=== PATIENT | male | born 1945 | race Caucasian/White ===

== ENCOUNTER 2018-09-19 19:30 | Outpatient (CLI) | payer MEDICARE, OTHER | END 2018-09-19 19:31 | disposition home or self-care (01) | LOC: SLEEPLAB 19:30 | PROVIDERS: ATTEND Internal Medicine | DX: G47.33 Obstructive sleep apnea (adult) (pediatric) (principal); R53.83 Other fatigue; R51 Headache; I11.0 Hypertensive heart disease with heart failure; I50.9 Heart failure, unspecified; R35.1 Nocturia; R06.83 Snoring; J44.9 Chronic obstructive pulmonary disease, unspecified; I48.91 Unspecified atrial fibrillation | CPT/HCPCS: 95811 ==

== ENCOUNTER 2020-10-16 19:20 | Inpatient (IN) | payer MEDICARE, BC, OTHER ==
[2020-10-16] MEDS ORDERED: Dexamethasone 10 MG/ML VIAL ONE (19:51)
[2020-10-16 20:17] LABS: ALT (SGPT) 16 U/L (8-55); AST (SGOT) 23 U/L (5-34); Albumin 3.5 g/dL (3.4-4.8); Alkaline Phosphatase 71 U/L (40-110); Anion Gap 12 mmol/L (10-20); BUN (Urea Nitrogen) 30 mg/dL (8.4-25.7); Bilirubin, Total 0.3 mg/dL (0.2-1.2); CRP (Inflammatory) 6.47 mg/dL (= or < 0.5); Calc. Creatinine Clearance 0 mL/min (70-130); Calcium 8.9 mg/dL (7.8-10.44); Carbon Dioxide 22 mmol/L (23-31); Chloride 104 mmol/L (98-107); Globulin 2.8 g/dL (2.4-3.5); Glucose 111 mg/dL (83-110); Potassium 4.2 mmol/L (3.5-5.1); Protein, Total 6.3 g/dL (5.8-8.1); Sodium 134 mmol/L (136-145)
[2020-10-16 20:20] LABS: #Lymphocytes 0.7 thou/uL (1.20-3.40); #Monocytes 0.7 thou/uL (0.11-0.59); #Neutrophils 4.9 thou/uL (1.40-6.50); %Basophils 0.2 % (0.0-1.0); %Eosinophils 0.4 % (0.0-10.0); %Lymphocytes 10.4 % (21.0-51.0); %Monocytes 11.1 % (0.0-10.0); %Neutrophils 77.9 % (42.0-75.0); Hemoglobin 11.7 g/dL (14.0-18.0); Mean Corpuscular HGB CONC 33.7 g/dL (32.0-36.0); Mean Corpuscular Hemoglobin 33.8 pg (27.0-31.0); Mean Platelet Volume 11.3 fL (7.4-10.4); Platelet Count 115 thou/uL (130-400); RBC Distribution Width 11.7 % (11.5-14.5); Red Blood Cell (RBC) Count 3.47 mill/uL (4.70-6.10); White Blood Cell (WBC) Count 6.3 thou/uL (4.8-10.8)
[2020-10-16 20:49] LABS: MDiff Complete? YES; Macrocytosis SLIGHT = 6-15 cells (100X) (0-5/hpf); Platelet Morphology Comment Appears Decreased
[2020-10-16] MEDS ORDERED: cefTRIAXone\\ROCEPHIN 1 GM VIAL ONE (21:20)
[2020-10-16] MEDS ORDERED: Azithromycin 500 MG VIAL ONE (21:47)
[2020-10-16] MEDS ORDERED: Norepinephrine 8 MG/0.9% NS 250 ML ONE (22:49)
[2020-10-16] MEDS ORDERED: Acetaminophen 650 MG Suppository PR PRN (23:48)
[2020-10-16] MEDS ORDERED: Ondansetron PF 4 MG/2 ML Vial IVP PRN (23:48)
[2020-10-16] MEDS ORDERED: Ondansetron ODT 4 MG TAB PO PRN (23:48)
[2020-10-16] MEDS ORDERED: Acetaminophen 325 MG TAB PO PRN (23:48)
[2020-10-16] MEDS ORDERED: Benzonatate 100 MG CAP PO PRN (23:59)
[2020-10-17 00:07] VITALS: BMI 23.8
[2020-10-17] MEDS ORDERED: Pharmacy to Dose REMDESIVIR IVPB PRN ×2 (00:13→00:19)
[2020-10-17] MEDS ORDERED: Enoxaparin Sodium 40 MG/0.4 ML SYRINGE SC SCH (00:15)
[2020-10-17 02:09] LABS: SARS-CoV-2 NAA Rapid Test DETECTED (NotDetected)
[2020-10-17] MEDS ORDERED: Enoxaparin Sodium 40 MG/0.4 ML SYRINGE ONE ×3 (03:38→22:08)
[2020-10-17 08:21] LABS: #Lymphocytes 0.5 thou/uL (1.20-3.40); #Monocytes 0.5 thou/uL (0.11-0.59); #Neutrophils 6.1 thou/uL (1.40-6.50); %Eosinophils 0.1 % (0.0-10.0); %Lymphocytes 6.5 % (21.0-51.0); %Monocytes 6.7 % (0.0-10.0); %Neutrophils 86.7 % (42.0-75.0); Hemoglobin 11.7 g/dL (14.0-18.0); Mean Corpuscular HGB CONC 33.5 g/dL (32.0-36.0); Mean Platelet Volume 10.8 fL (7.4-10.4); Platelet Count 131 thou/uL (130-400); RBC Distribution Width 11.6 % (11.5-14.5); Red Blood Cell (RBC) Count 3.43 mill/uL (4.70-6.10); White Blood Cell (WBC) Count 7.1 thou/uL (4.8-10.8)
[2020-10-17 08:38] LABS: Anion Gap 9 mmol/L (10-20); BUN (Urea Nitrogen) 22 mg/dL (8.4-25.7); Calc. Creatinine Clearance 95 mL/min (70-130); Calcium 8.1 mg/dL (7.8-10.44); Carbon Dioxide 21 mmol/L (23-31); Chloride 110 mmol/L (98-107); Glucose 192 mg/dL (83-110); Potassium 4.4 mmol/L (3.5-5.1); Sodium 136 mmol/L (136-145)
[2020-10-17] MEDS ORDERED: REMDESIVIR 200 MG in Sodium Chloride 0.9% 250 ML 210 ML IV SCH ×3 (09:00)
[2020-10-17] MEDS: Enoxaparin Sodium 40 MG/0.4 ML SYRINGE SC SCH ×2 (09:25→22:16)
[2020-10-17] MEDS ORDERED: Lactated Ringer's 1,000 ML IV SCH (10:30)
[2020-10-17] MEDS ORDERED: Ascorbic Acid 500 mg Chewable Tablet ONE (10:46)
[2020-10-17] MEDS ORDERED: Zinc Sulfate 220 MG CAP ONE (10:46)
[2020-10-17] MEDS: Cholecalciferol (Vitamin D3) 400 UNITS TAB PO SCH (11:04)
[2020-10-17] MEDS: Ascorbic Acid 500 mg Chewable Tablet PO SCH (11:04)
[2020-10-17] MEDS: Dexamethasone 10 MG/ML VIAL SLOW IVP SCH (11:04)
[2020-10-17] MEDS: guaiFENesin ER 600 MG TAB PO SCH ×2 (11:05→23:44)
[2020-10-17] MEDS: Zinc Sulfate 220 MG CAP PO SCH (11:05)
[2020-10-17] MEDS ORDERED: Loperamide HCl 2 MG CAP ONE ×2 (19:21→22:08)
[2020-10-17] MEDS ORDERED: Loperamide HCl 2 MG CAP PO SCH (20:30)
[2020-10-18 03:42] LABS: Bacteria/HPF None Seen HPF (None Seen); Bilirubin Negative (Negative); Blood, Urine Trace (Negative); Clarity Clear (Clear); Glucose, Urine (Dipstick) Normal (Negative); Ketone, Urine Negative (Negative); Leukocyte Negative Leu/uL (Negative); Nitrite Negative (Negative); Protein, Urine (Dipstick) 10 mg/dL (Neg-Trace); Specific Gravity, Urine 1.024 (1.002-1.036); Squamous Epithelial None Seen HPF (0-3); Urobilinogen Normal mg/dL (Less than 2); WBC/HPF 0-3 HPF (0-3)
[2020-10-18 03:46] LABS: Urine Culture Reflex No No
[2020-10-18] MEDS: REMDESIVIR 100 MG in Sodium Chloride 0.9% 250 ML 230 ML IV SCH (08:36)
[2020-10-18] MEDS: Enoxaparin Sodium 40 MG/0.4 ML SYRINGE SC SCH ×2 (08:36→19:57)
[2020-10-18] MEDS: Zinc Sulfate 220 MG CAP PO SCH (08:37)
[2020-10-18] MEDS: guaiFENesin ER 600 MG TAB PO SCH ×2 (08:38→19:57)
[2020-10-18] MEDS: Cholecalciferol (Vitamin D3) 400 UNITS TAB PO SCH (08:39)
[2020-10-18] MEDS: Ascorbic Acid 500 mg Chewable Tablet PO SCH (08:39)
[2020-10-18] MEDS ORDERED: REMDESIVIR 100 MG in Sodium Chloride 0.9% 250 ML 230 ML IV SCH (09:00)
[2020-10-18] MEDS: Dexamethasone 10 MG/ML VIAL SLOW IVP SCH (10:03)
[2020-10-18] MEDS: Loperamide HCl 2 MG CAP PO PRN (21:52)
[2020-10-18] MEDS: Guaifenesin DM 100-10/5 ML UDCUP PO PRN (21:52)
[2020-10-19 05:46] LABS: ALT (SGPT) 30 U/L (8-55); AST (SGOT) 28 U/L (5-34); Albumin 2.8 g/dL (3.4-4.8); Alkaline Phosphatase 68 U/L (40-110); Bilirubin, Direct 0.1 mg/dL (0.1-0.3); Bilirubin, Total 0.2 mg/dL (0.2-1.2); CRP (Inflammatory) 2.45 mg/dL (= or < 0.5); Protein, Total 5.5 g/dL (5.8-8.1)
[2020-10-19] MEDS: Dexamethasone 10 MG/ML VIAL SLOW IVP SCH (08:21)
[2020-10-19] MEDS: Enoxaparin Sodium 40 MG/0.4 ML SYRINGE SC SCH ×2 (08:21→20:33)
[2020-10-19] MEDS: Ascorbic Acid 500 mg Chewable Tablet PO SCH (08:22)
[2020-10-19] MEDS: Cholecalciferol (Vitamin D3) 400 UNITS TAB PO SCH (08:22)
[2020-10-19] MEDS: Loperamide HCl 2 MG CAP PO PRN (08:22)
[2020-10-19] MEDS: guaiFENesin ER 600 MG TAB PO SCH ×2 (08:22→20:34)
[2020-10-19] MEDS: Zinc Sulfate 220 MG CAP PO SCH (08:22)
[2020-10-19] MEDS: REMDESIVIR 100 MG in Sodium Chloride 0.9% 250 ML 230 ML IV SCH (09:40)
[2020-10-19] MEDS: cefTRIAXone\\ROCEPHIN 2 GM in Sodium Chloride 0.9% 100 ML IVPB SCH (15:07)
[2020-10-19] MEDS: Guaifenesin DM 100-10/5 ML UDCUP PO PRN (15:07)
[2020-10-20 04:12] LABS: ALT (SGPT) 41 U/L (8-55); AST (SGOT) 37 U/L (5-34); Albumin 2.6 g/dL (3.4-4.8); Alkaline Phosphatase 63 U/L (40-110); Bilirubin, Direct 0.1 mg/dL (0.1-0.3); Bilirubin, Total 0.2 mg/dL (0.2-1.2); Protein, Total 4.9 g/dL (5.8-8.1)
[2020-10-20] MEDS: guaiFENesin ER 600 MG TAB PO SCH ×2 (08:56→21:10)
[2020-10-20] MEDS: Zinc Sulfate 220 MG CAP PO SCH (08:56)
[2020-10-20] MEDS: Ascorbic Acid 500 mg Chewable Tablet PO SCH (08:56)
[2020-10-20] MEDS: Cholecalciferol (Vitamin D3) 400 UNITS TAB PO SCH (08:56)
[2020-10-20] MEDS: Enoxaparin Sodium 40 MG/0.4 ML SYRINGE SC SCH (08:57)
[2020-10-20] MEDS: Dexamethasone 10 MG/ML VIAL SLOW IVP SCH (08:57)
[2020-10-20] MEDS: REMDESIVIR 100 MG in Sodium Chloride 0.9% 250 ML 230 ML IV SCH (10:29)
[2020-10-20 11:17] LABS: #Lymphocytes 1.1 thou/uL (1.20-3.40); #Monocytes 1.2 thou/uL (0.11-0.59); #Neutrophils 11.1 thou/uL (1.40-6.50); %Basophils 0.1 % (0.0-1.0); %Eosinophils 0.2 % (0.0-10.0); %Lymphocytes 8.1 % (21.0-51.0); %Monocytes 8.8 % (0.0-10.0); %Neutrophils 82.9 % (42.0-75.0); Hemoglobin 12.8 g/dL (14.0-18.0); Mean Corpuscular HGB CONC 33.4 g/dL (32.0-36.0); Mean Corpuscular Hemoglobin 33.4 pg (27.0-31.0); Mean Platelet Volume 10.6 fL (7.4-10.4); Platelet Count 195 thou/uL (130-400); RBC Distribution Width 11.7 % (11.5-14.5); Red Blood Cell (RBC) Count 3.83 mill/uL (4.70-6.10); White Blood Cell (WBC) Count 13.4 thou/uL (4.8-10.8)
[2020-10-20] MEDS: Guaifenesin DM 100-10/5 ML UDCUP PO PRN (14:03)
[2020-10-20] MEDS: cefTRIAXone\\ROCEPHIN 2 GM in Sodium Chloride 0.9% 100 ML IVPB SCH (14:03)
[2020-10-20] MEDS ORDERED: Ipratropium Oral Inhaler INH PRN (14:14)
[2020-10-20] MEDS: Rivaroxaban 10 MG TAB PO SCH (17:44)
[2020-10-20] MEDS: Carvedilol 3.125 MG TAB PO SCH (21:09)
[2020-10-21 05:40] LABS: ALT (SGPT) 55 U/L (8-55); AST (SGOT) 36 U/L (5-34); Albumin 2.6 g/dL (3.4-4.8); Alkaline Phosphatase 62 U/L (40-110); Bilirubin, Direct 0.1 mg/dL (0.1-0.3); Bilirubin, Total 0.2 mg/dL (0.2-1.2); Protein, Total 4.8 g/dL (5.8-8.1)
[2020-10-21] MEDS: Zinc Sulfate 220 MG CAP PO SCH (08:02)
[2020-10-21] MEDS: Ascorbic Acid 500 mg Chewable Tablet PO SCH (08:03)
[2020-10-21] MEDS: Lisinopril 10 MG TAB PO SCH (08:03)
[2020-10-21] MEDS: guaiFENesin ER 600 MG TAB PO SCH ×2 (08:03→21:36)
[2020-10-21] MEDS: Cholecalciferol (Vitamin D3) 400 UNITS TAB PO SCH (08:04)
[2020-10-21] MEDS: Carvedilol 3.125 MG TAB PO SCH ×2 (08:04→21:36)
[2020-10-21] MEDS: Atorvastatin Calcium 40 MG TAB PO SCH (08:04)
[2020-10-21] MEDS: Dexamethasone 10 MG/ML VIAL SLOW IVP SCH (08:09)
[2020-10-21] MEDS: REMDESIVIR 100 MG in Sodium Chloride 0.9% 250 ML 230 ML IV SCH (09:59)
[2020-10-21] MEDS ORDERED: Albuterol Sulfate 2.5 mg/3 ml Neb EZPAP PRN (13:47)
[2020-10-21] MEDS ORDERED: Albuterol 200 PUFF (6.7GM INHALER) INH PRN (13:56)
[2020-10-21] MEDS: cefTRIAXone\\ROCEPHIN 2 GM in Sodium Chloride 0.9% 100 ML IVPB SCH (14:25)
[2020-10-21] MEDS: Rivaroxaban 10 MG TAB PO SCH (16:27)
[2020-10-22 05:22] LABS: #Eosinphils 0.1 thou/uL (0.0-0.7); #Lymphocytes 1.5 thou/uL (1.20-3.40); #Monocytes 1.3 thou/uL (0.11-0.59); #Neutrophils 9.6 thou/uL (1.40-6.50); %Basophils 0.4 % (0.0-1.0); %Eosinophils 0.6 % (0.0-10.0); %Lymphocytes 12.2 % (21.0-51.0); %Monocytes 10.2 % (0.0-10.0); %Neutrophils 76.6 % (42.0-75.0); Mean Corpuscular HGB CONC 32.8 g/dL (32.0-36.0); Mean Corpuscular Hemoglobin 33.3 pg (27.0-31.0); Mean Platelet Volume 10.3 fL (7.4-10.4); Platelet Count 221 thou/uL (130-400); RBC Distribution Width 11.8 % (11.5-14.5); White Blood Cell (WBC) Count 12.5 thou/uL (4.8-10.8)
[2020-10-22 05:39] LABS: Anion Gap 11 mmol/L (10-20); BUN (Urea Nitrogen) 30 mg/dL (8.4-25.7); Calc. Creatinine Clearance 108 mL/min (70-130); Carbon Dioxide 25 mmol/L (23-31); Chloride 107 mmol/L (98-107); Glucose 103 mg/dL (83-110); Potassium 4.5 mmol/L (3.5-5.1); Sodium 138 mmol/L (136-145)
[2020-10-22] MEDS: Zinc Sulfate 220 MG CAP PO SCH (09:15)
[2020-10-22] MEDS: Atorvastatin Calcium 40 MG TAB PO SCH (09:15)
[2020-10-22] MEDS: Ascorbic Acid 500 mg Chewable Tablet PO SCH (09:16)
[2020-10-22] MEDS: Cholecalciferol (Vitamin D3) 400 UNITS TAB PO SCH (09:16)
[2020-10-22] MEDS: Carvedilol 3.125 MG TAB PO SCH ×2 (09:16→21:00)
[2020-10-22] MEDS: Dexamethasone 10 MG/ML VIAL SLOW IVP SCH (09:17)
[2020-10-22] MEDS: Lisinopril 10 MG TAB PO SCH (09:17)
[2020-10-22] MEDS: guaiFENesin ER 600 MG TAB PO SCH ×2 (12:18→20:59)
[2020-10-22] MEDS: Rivaroxaban 10 MG TAB PO SCH (16:19)
[2020-10-22] MEDS: cefTRIAXone\\ROCEPHIN 2 GM in Sodium Chloride 0.9% 100 ML IVPB SCH (17:28)
[2020-10-23] MEDS ORDERED: Dexamethasone 4 MG TAB PO SCH (08:00)
[2020-10-23] MEDS: guaiFENesin ER 600 MG TAB PO SCH (08:42)
[2020-10-23] MEDS: Cholecalciferol (Vitamin D3) 400 UNITS TAB PO SCH (08:42)
[2020-10-23] MEDS: Atorvastatin Calcium 40 MG TAB PO SCH (08:43)
[2020-10-23] MEDS: Carvedilol 3.125 MG TAB PO SCH (08:43)
[2020-10-23] MEDS: Zinc Sulfate 220 MG CAP PO SCH (08:43)
[2020-10-23] MEDS: Ascorbic Acid 500 mg Chewable Tablet PO SCH (09:11)
[2020-10-23] MEDS: Lisinopril 10 MG TAB PO SCH (09:12)
[2020-10-23 11:34] VITALS: BP 108/68; TEMP 97.5
== END 2020-10-23 12:20 | disposition home or self-care (01) | DRG 871 ==
LOC: ERS 19:20 → ERHOLD 22:16 → 2SE 10-17 22:36
PROVIDERS: ADMIT Student in an Organized Health Care Education/Training Program; ATTEND Internal Medicine
PROC: 8E0ZXY6 Isolation (ICD-10-PCS; 2020-10-16)
PROC: 3E033XZ Introduction of Vasopressor into Peripheral Vein, Percutaneous Approach (ICD-10-PCS; 2020-10-16)
PROC: XW033E5 Introduction of Remdesivir Anti-infective into Peripheral Vein, Percutaneous Approach, New Technology Group 5 (ICD-10-PCS; principal; 2020-10-17)
DX: A41.89 Other specified sepsis (principal); U07.1 COVID-19; J12.82 Pneumonia due to coronavirus disease 2019; J96.01 Acute respiratory failure with hypoxia; R57.1 Hypovolemic shock; F17.210 Nicotine dependence, cigarettes, uncomplicated; D69.6 Thrombocytopenia, unspecified
CPT/HCPCS: 0240U; 36415; 71045; 80048; 80053; 80076; 81001; 82728; 83605; 84484; 85025; 85652; 86140; 87040; 87324; 87449; 93005; 94760; J0456; J0696; J1100; J1650; J3490; J7050; J7120; J8540